=== PATIENT | male | born 1965 | race African-American/Black ===

== ENCOUNTER 2023-11-23 16:34 | Emergency (ER) | payer OTHER ==
[~2023-11-23] VITALS: Ht 177.8 cm; Wt 97.0 kg
[2023-11-23 16:47] VITALS: O2SAT 97
[2023-11-23 17:53] LABS: BASOPHILS % 0.5 % (0.0-2.0); EOSINOPHILS % 0.2 % (0.0-5.0); HEMATOCRIT. 46.3 % (42.0-52.0); HEMOGLOBIN. 15.5 g/dL (14.0-18.0); LYMPHOCYTES % 20.7 % (20.0-50.0); MEAN CORPUSCULAR HEMOGLOBIN 31.5 pg (28.0-32.0); MEAN CORPUSCULAR HGB CONC 33.4 g/dL (31.0-37.0); MEAN CORPUSCULAR VOLUME 94.1 fL (80.0-94.0); MEAN PLATELET VOLUME 8.9 fl (7.4-10.4); NEUTROPHILS % 71.6 % (40.0-76.0); PLATELET 168 x1000/uL (130-400); RED BLOOD CELL COUNT 4.92 mill/uL (4.7-6.1); WHITE BLOOD COUNT 9.6 x1000/uL (4.5-11.0)
[2023-11-23 18:18] LABS: ALANINE AMINOTRANSFERASE 88 IU/L (10-49); ALBUMIN 4.7 g/dL (3.2-4.8); ASPARTATE AMINOTRANSFERASE 120 IU/L (<34); CALCIUM 9.8 mg/dL (8.7-10.4); CARBON DIOXIDE 19 mEq/L (21-32); CHLORIDE 102 mEq/L (98-107); CREATININE 0.8 mg/dL (0.6-1.3); GLUCOSE 92 mg/dL (70-105); POTASSIUM 3.5 mEq/L (3.5-5.1); PROTEIN TOTAL 8.6 g/dL (6.0-8.3); SODIUM 137 mEq/L (136-145); TROPONIN I HIGH SENSITIVITY 5 ng/L (3.0-53); UREA NITROGEN BLOOD 6 mg/dL (9-23)
[2023-11-23 18:30] LABS: PROTHROMBIN TIME 10.8 sec (9.6-11.0)
[2023-11-23] MEDS ORDERED: SODIUM CHLORIDE 0.9% 1,000 ML IV ONE (19:15)
[2023-11-23] MEDS ORDERED: ONDANSETRON HCL 4MG/2ML INJ IV ONE (19:15)
[2023-11-23] MEDS ORDERED: KETOROLAC 30MG/ML VIAL IV ONE (19:15)
[2023-11-24 08:18] VITALS: BP 161/109; PULSE 105; RESP 25; TEMP 97.4
== END 2023-11-24 08:21 | disposition short-term general hospital (02) ==
LOC: ER 16:34 → CANBEDREQ 11-24 11:26
DX: K85.90 Acute pancreatitis without necrosis or infection, unspecified (principal)
CPT/HCPCS: 99291; 71045; 80053; 83690; 85025; 85610; 84484; 36415; 93005; 76700; J7030